=== PATIENT | female | born 1995 | race Caucasian/White ===

== ENCOUNTER 2017-03-03 23:20 | Emergency (ER) | payer OTHER ==
[~2017-03-03] VITALS: Ht 160 cm; Wt 80.9 kg
[~2017-03-03 23:20] MED LIST: ADDERALL PO; ALBUTEROL17 GM INH; AMOXICILLIN PO; AMOXICILLIN500 M1 PO; AMOXICILLIN875 MG PO; CIPRODEX OTIC7.5 ML OT; CORTISPORIN OTIC; IBUPROFEN PO; KEFLEX500 MG PO; NILSTAT1 ML PO; SINGULAIR PO; SLEEP MED; TESSALON200 MG PO; TOBRADEX EYE DRO5 ML OP
[2017-03-04 02:18] LABS: URINE SOURCE CLEAN CATCH
[2017-03-04 02:22] LABS: URINE APPEARANCE CLOUDY; URINE BILIRUBIN NEG (NEG); URINE BLOOD 2+ (NEG); URINE COLOR YELLOW; URINE GLUCOSE NEG (NEG); URINE KETONE NEG (NEG); URINE LEUKOCYTE ESTERASE NEG (NEG); URINE NITRATE NEG (NEG); URINE PH 5.5 (5-8); URINE PROTEIN NEG (NEG); URINE SPECIFIC GRAVITY 1.025 (1.003-1.035)
[2017-03-04 02:24] LABS: CULTURE INDICATED? YES; URINE BACTERIA AUWI 3+ (NEGATIVE); URINE SQUAMOUS EPITHELIAL CELL MOD /[HPF]
[2017-03-04 02:49] LABS: AMPHETAMINE POS (NEG); BARBITURATES NEG (NEG); BENZODIAZEPINES NEG (NEG); COCAINE NEG (NEG); MARIJUANA NEG (NEG); OPIATES NEG (NEG); TRICYCLIC ANTIDEPRESSANTS NEG (NEG); U METHADONE NEG (NEG)
[2017-03-06 11:37] LABS: CHLAMYDIA TRACH Not Detected (Not Detected); N GONOR Not Detected (Not Detected)
== END 2017-03-04 04:00 | disposition home or self-care (01) ==
LOC: CED 23:20
PROVIDERS: Nurse Practitioner
DX: N39.0 Urinary tract infection, site not specified (principal); F90.9 Attention-deficit hyperactivity disorder, unspecified type; F17.290 Nicotine dependence, other tobacco product, uncomplicated
CPT/HCPCS: 80307; 81003; 84703; 87086; 87491; 87591; 87808; 87905; 96372; 99284; J1885

== ENCOUNTER 2017-04-01 14:24 | Emergency (ER) | payer OTHER ==
[~2017-04-01] VITALS: Ht 160 cm; Wt 49.0 kg
--- NOTE | ~2017-04-01 | CR117 ---
[facility] A Service of [facility] RADIOLOGY TEXT RESULTS PATIENT: CHERI MAGANA LOCATION: CFTX : 97 UNIT #: [id number] AGE: [address]: So Warren APRN SEX: F ORDER DR: [id number] [facility]. [place], [place] [address] [id number] MR#: [id number] Acc #: [id number] NAME: CHERI MAGANA. : 1995 SEX: F STUDY DATE/TIME: 04/01/2017 15:36 UNIT: [facility] ROOM: STUDY DESCRIPTION: CR Finger 2 View Thumb Rt Attending Physician: So Warren A.P.R.N. Ordering Physician: Ed Tevin Knight M.D. Primary Care Physician: Dwaine Martin MEDICAL IMAGING REPORT This report is preliminary unless electronic signature is present EXAM Right thumb series 04/01/2017 HISTORY 1 day pain. Bruising, slipped and fell. Proximal thumb pain. TECHNIQUE AP lateral and oblique radiographs of the right thumb are presented. COMPARISON No comparisons FINDINGS Questionable incomplete hairline fracture involving junction of shaft and head of the proximal phalanx of thumb along its anterior aspect. This is a questionable finding. Please correlate with mechanism of injury and location of patient's pain. If this is a fracture, I would favor that it is incomplete. There is no indication of intraarticular extension and no other potential fractures are seen. There is no soft tissue defect, subcutaneous air or radiodense foreign body. No traumatic malalignment. Question generalized soft tissue swelling of the thumb. Correlate with exam. The appearance could simply reflect the patient's body habitus. Limited views of other bony and soft tissue structures unremarkable. Dictated by... Tato Dolan M.D. THIS IS AN ELECTRONICALLY VERIFIED REPORT Tato Dolan M.D. at 04/02/2017 6:35 PM JSK/to [facility] A Service of [facility] RADIOLOGY TEXT RESULTS PATIENT: CHERI MAGANA LOCATION: [facility] : 97 UNIT #: [id number] AGE: [address]: So Warren APRN SEX: F ORDER DR: TD: 04/01/2017 20:11 JOB #: [id number] MEDICAL IMAGING REPORT Page 1 of 1 COPY
== END 2017-04-01 17:04 | disposition home or self-care (01) ==
LOC: CFTX 14:24 → CED 14:24 → CFTX 15:32
DX: S63.601A Unspecified sprain of right thumb, initial encounter (principal); F17.200 Nicotine dependence, unspecified, uncomplicated; W18.30XA Fall on same level, unspecified, initial encounter; Y92.009 Unspecified place in unspecified non-institutional (private) residence as the place of occurrence of the external cause
CPT/HCPCS: 29125; 73140; 99283